=== PATIENT | male | born 1960 | race Two or more races ===

== ENCOUNTER 2018-01-28 14:47 | Emergency (ER) | payer OTHER ==
--- NOTE | 2018-01-28 15:45 | PDOC ---
Attending Attestation - Resident Resident Name: Dany James - ED Attending Attestation I have performed the following: I have examined & evaluated the patient, The case was reviewed & discussed with the resident, I agree w/resident's findings & plan, Exceptions are as noted
[2018-01-28 15:47] VITALS: BP 150/84; PULSE 78; TEMP 98.5; BMI 27.8
[2018-01-28] MEDS ORDERED: SODIUM CHLORIDE 1,000 ML IV STA (15:52)
[2018-01-28] MEDS ORDERED: ACETAMINOPHEN 1000 MG/100 ML VIAL (NON FORMULARY) IVPB ONE (15:52)
[2018-01-28] MEDS ORDERED: ACETAMINOPHEN INJECTION 100 ML IVPB ONE (16:14)
[2018-01-28 16:38] LABS: BASO % 0.1 % (0-2.0); MCH 28.2 pg (25.7-33.7)
[2018-01-28 16:42] LABS: RBC 4.79 M/mm3 (4.00-5.60)
[2018-01-28 16:43] LABS: HEMATOCRIT 40.6 % (35.4-49); HEMOGLOBIN 13.5 GM/dl (11.7-16.9); LYMPH % 5.3 % (8-40); MCHC 33.3 g/dl (32.0-35.9); MEAN CELL VOLUME 84.8 fl (80-96); NEUT % 89.6 % (42.8-82.8); PLATELET COUNT 135 K/MM3 (134-434); RDW 12.5 % (11.9-15.9)
[2018-01-28 16:44] LABS: ALBUMIN 3.8 g/dl (3.5-5.0); ALK PHOS 63 U/L (32-92); ANION GAP 7 MMOL/L (8-16); BILIRUBIN,TOTAL 0.7 mg/dl (0.2-1.0); BLOOD UREA NITROGEN 13 mg/dl (7-18); CALCIUM 8.2 mg/dl (8.4-10.2); CHLORIDE 101 mmol/L (98-107); CO2 23 mmol/L (22-28); CREATININE 0.9 mg/dl (0.6-1.3); GLUCOSE,RANDOM 112 mg/dl (74-106); POTASSIUM 3.3 mmol/L (3.5-5.1); SGOT/AST 18 U/L (10-42); SGPT/ALT 17 U/L (10-40); SODIUM 131 mmol/L (136-145); TOT PROT 7.1 g/dl (6.4-8.3)
--- NOTE | 2018-01-28 17:14 | PDOC ---
History of Present Illness - General Chief Complaint: Diarrhea Stated Complaint: STOMACH INFECTION Time Seen by Provider: 01/28/18 15:43 History Source: Patient - History of Present Illness Initial Comments: 01/28/18 17:13 Pt is a 57 yo M with a PMH of HTN who presents to the ED from his PCP office with 1 day of diarrhea with associated Abd pain, fever, chills, and fatigue which he thinks is from food he ate 4 days ago. Pt states that his family had mild symptoms, but not this severe. Pt describes the pain as a 2/10 cramping that is relieved with bowel movements. He states his diarrhea is nonbloody, and is semi solid. He reports 15 bowel movements since this morning, his most recent being at 2:15pm at his PCP office. He states that he had a 103 fever at the office, which he was given 2 advil and it helped bring his fever down to 98.5 currently. He endorses having Lightheadedness while at his PCP office which has resolved. He denies any nausea, vomiting, chest pain, sob, dizzyness , recent travel, dysuria, numbness, tingling, weakness, or recent antibiotic use. PMHx: HTN PSHx: No abdominal surgery Medications: carvedilol 12.5mg PO b.i.d Allergies: PCN Social HX: Denies Tobacco, alcohol, illicit drug use. Past History - Past Medical History Allergies/Adverse Reactions: Allergies Allergy/AdvReac Type Severity Reaction Status Date / Time Penicillins Allergy Mild Rash Verified 01/28/18 15:13 Home Medications: Ambulatory Orders Carvedilol [Coreg -] 12.5 mg PO BID 01/28/18 Anemia: No Asthma: No Cancer: No Cardiac Disorders: No (SVT) CVA: No COPD: No CHF: No Dementia: No Diabetes: No GI Disorders: Yes (GERD) Disorders: No HTN: Yes Hypercholesterolemia: No Liver Disease: No Seizures: No Thyroid Disease: No - Surgical History Abdominal Surgery: No Appendectomy: No Cardiac Surgery: No Cholecystectomy: No Lung Surgery: No Neurologic Surgery: No Orthopedic Surgery: No - Immunization History Immunization Up to Date: Yes - Suicide/Smoking/Psychosocial Hx Smoking Status: No Smoking History: Never smoked Have you smoked in the past 12 months: No Number of Cigarettes Smoked Daily: 0 Hx Alcohol Use: No Drug/Substance Use Hx: No Substance Use Type: None Hx Substance Use Treatment: No Review of Systems - Review of Systems Able to Perform ROS?: Yes Constitutional: Yes: See HPI HEENTM: No: Symptoms Reported Respiratory: No: Symptoms reported Cardiac (ROS): No: Symptoms Reported ABD/GI: Yes: See HPI : No: Symptoms Reported Musculoskeletal: No: Symptoms Reported Integumentary: No: Symptoms Reported Neurological: No: Symptoms reported *Physical Exam - Vital Signs Last Vital Signs Temp Pulse Resp BP Pulse Ox 98.5 F 78 16 150/84 100 01/28/18 14:48 01/28/18 14:48 01/28/18 14:48 01/28/18 14:48 01/28/18 14:48 - Physical Exam General Appearance: Yes: Nourished, Appropriately Dressed. No: Apparent Distress HEENT: positive: EOMI, GILDA, Normal ENT Inspection Respiratory/Chest: positive: Lungs Clear, Normal Breath Sounds. negative: Chest Tender, Respiratory Distress Cardiovascular: positive: Regular Rhythm, Regular Rate, S1, S2 Gastrointestinal/Abdominal: positive: Normal Bowel Sounds, Flat, Soft. negative : Tender Musculoskeletal: positive: Normal Inspection. negative: CVA Tenderness Extremity: positive: Normal Capillary Refill, Normal Inspection, Normal Range of Motion Integumentary: positive: Normal Color, Dry, Warm Neurologic: positive: Fully Oriented, Alert, Normal Mood/Affect, Normal Response , Motor Strength 5/5 ED Treatment Course - LABORATORY CBC & Chemistry Diagram: 01/28/18 16:00 01/28/18 16:00 - ADDITIONAL ORDERS Additional order review: Laboratory Results 01/28/18 16:00 Sodium 131 L Potassium 3.3 L D Chloride 101 Carbon Dioxide 23 Anion Gap 7 L BUN 13 Creatinine 0.9 Creat Clearance w eGFR > 60 Random Glucose 112 H Calcium 8.2 L Total Bilirubin 0.7 AST 18 D ALT 17 D Alkaline Phosphatase 63 Total Protein 7.1 Albumin 3.8 01/28/18 16:00 RBC 4.79 MCV 84.8 MCHC 33.3 RDW 12.5 MPV 9.0 Neutrophils % 89.6 H Lymphocytes % 5.3 L D Monocytes % 5.0 Eosinophils % 0.0 D Basophils % 0.1 - Medications Given in the ED: ED Medications Discontinued Medications Generic Name Dose Route Start Last Admin Trade Name Freq PRN Reason Stop Dose Admin Acetaminophen 1,000 mg 01/28/18 15:52 01/28/18 16:20 Ofirmev Injection - IVPB 01/28/18 15:53 1,000 mg ONCE ONE Administration Sodium Chloride 1,000 mls @ 1,000 mls/hr 01/28/18 15:52 01/28/18 16:00 Normal Saline - IV 01/28/18 16:51 1,000 mls/hr ASDIR STA Administration Medical Decision Making - Medical Decision Making 01/28/18 17:14 basic labs, blood cul;tx, NS 01/28/18 17:38 All labs negativde. Patient feels much better. Will d/c with return precautions. *DC/Admit/Observation/Transfer Diagnosis at time of Disposition: Viral gastroenteritis - Discharge Dispostion Disposition: HOME Condition at time of disposition: Good Decision to Admit order: No - Referrals Referrals: Janeth Vang MD [Primary Care Provider] - - Patient Instructions Printed Discharge Instructions: DI for Viral Gastroenteritis -- Adult, Gastroenteritis Diet Additional Instructions: Come back to the ER for any new, worsening or concerning symptom. - Post Discharge Activity
[2018-01-28] MEDS ORDERED: POTASSIUM CHLORIDE TABS 10 MEQ TABLET.ER (FP) PO ONE (17:20)
[2018-01-28] MEDS ORDERED: POTASSIUM CHLORIDE TABS 20 MEQ TABLET.ER (FP) PO ONE (17:23)
[2018-01-28 18:33] LABS: LIPASE 161 U/L (73-393)
== END 2018-01-28 17:47 | disposition home or self-care (01) ==
LOC: FER 14:47
PROC: 3E033GC Introduction of Other Therapeutic Substance into Peripheral Vein, Percutaneous Approach (ICD-10-PCS; principal; 2018-01-28)
PROC: 3E0337Z Introduction of Electrolytic and Water Balance Substance into Peripheral Vein, Percutaneous Approach (ICD-10-PCS; 2018-01-28)
DX: A08.4 Viral intestinal infection, unspecified (principal); I10 Essential (primary) hypertension; Z88.0 Allergy status to penicillin
CPT/HCPCS: 36415; 80053; 83690; 85025; 87040; 99283-25; J0131; J7030

== ENCOUNTER 2021-11-08 20:40 | Emergency (ER) | payer OTHER ==
[2021-11-08 20:55] VITALS: BP 203/93; PULSE 68; TEMP 97.8; BMI 28.3
== END 2021-11-08 21:01 | disposition left against medical advice (07) ==
LOC: FER 20:40
DX: R09.89 Other specified symptoms and signs involving the circulatory and respiratory systems (principal); F41.9 Anxiety disorder, unspecified
CPT/HCPCS: 99281-25